=== PATIENT | male | born 1955 | race Caucasian/White ===

== ENCOUNTER → 2017-10-24 11:30 | Outpatient (CLI) | payer BC, SELFPAY ==
--- NOTE | 2017-10-24 11:30 | PROSBIL_PTH ---
PATIENT: JANETTE HALE III LOC: AKI U#:[id number] AGE/SX: 69/M ROOM: RE10/24/[address]: Dr. Denny Garcia MD : 1955 BED: DIS: SPEC #: [id number] RECD: 10/25/17 09:44 STATUS: KAELA MELISSA #: [id number] DORA: 10/24/17 11:[address]: Denny Garcia DEPT: SURGICAL PATHOLOGY RECD BY: Hernán Freed Tissues: A - PROSTATE RIGHT B - PROSTATE RIGHT C - PROSTATE RIGHT D - PROSTATE LEFT E - PROSTATE LEFT F - PROSTATE LEFT Procedures: PROSTATE BX HEADER OPERATION: Prostate biopsy PRE-OP DIAGNOSIS: Elevated PSA TISSUE SUBMITTED: A - Right apex, B - Right mid, C - Right base, D - Left apex, E - Left mid, F - Left base MICROSCOPIC DIAGNOSIS A. Right prostate, apex, core biopsy: Adenocarcinoma with focal mucinous features: Valmy grade: 7 (3+4) Cores involved: 1 out of 2 Tissue involved: 25% Greatest tumor length: 4.5 mm Focal high-grade prostatic intraepithelial neoplasia (HGPIN). B. Right prostate, mid, core biopsy: Adenocarcinoma: Valmy grade: 6 (3+3) Cores involved: 2 out of 2 Tissue involved: 35% Greatest tumor length: 5 mm Focal high-grade prostatic intraepithelial neoplasia (HGPIN). C. Right prostate, base, core biopsy: Adenocarcinoma: Valmy grade: 6 (3+3) Cores involved: 2 out of 2 Tissue involved: 6% Greatest tumor length: 1.5 mm D. Left prostate, apex, core biopsy: Focal high-grade prostatic intraepithelial neoplasia (HGPIN). E. Left prostate, mid, core biopsy: Focal high-grade prostatic intraepithelial neoplasia (HGPIN). Focal chronic inflammation. F. Left prostate, base, core biopsy: Adenocarcinoma: Bossman grade: 6 (3+3) Cores involved: 1 out of 2 Tissue involved: <1% Greatest tumor length: <1 mm Focal high-grade prostatic intraepithelial neoplasia (HGPIN). AM:devante 10/28/17 COMMENT A.Mucin stain with matched control supports the diagnosis. Case has been reviewed in consultation with Dr. Weinberg who concurs with the above diagnosis. IDC:SJ MICROSCOPIC DESCRIPTION Slides are reviewed. GROSS DESCRIPTION A - Received is one container designated prostate, right apex. The specimen consists of two elongated fragments of light lemos-white soft tissue each measuring 1.5 cm in length and 0.1 cm in diameter. The specimen is totally submitted in one cassette. B - Received is one container designated prostate, right mid. The specimen consists of two elongated fragments of light lemos-white soft tissue measuring 1 and 1.5 cm in length and 0.1 cm in diameter. The specimen is totally submitted in one cassette. C - Received is one container designated prostate, right base. The specimen consists of two elongated fragments of light lemos-white soft tissue measuring 1 and 1.8 cm in length and 0.1 cm in diameter. The specimen is totally submitted in one cassette. D - Received is one container designated prostate, left apex. The specimen consists of two elongated fragments of light lemos-white soft tissue each measuring 1.2 cm in length and 0.1 cm in diameter. The specimen is totally submitted in one cassette. E - Received is one container designated prostate, left mid. The specimen consists of two elongated fragments of light lemos-white soft tissue measuring 1 and 1.5 cm in length and 0.1 cm in diameter. The specimen is totally submitted in one cassette. F - Received is one container designated prostate, left base. The specimen consists of two elongated fragments of light lemos-white soft tissue each measuring 1 cm in length and 0.1 cm in diameter. The specimen is totally submitted in one cassette. / SJ:rg 10/25/17 TC:0 [facility]: [id number] [id number]
== END ==
PROVIDERS: Visit Provider Urology
DX: R97.20 Elevated prostate specific antigen [PSA] (principal)
CPT/HCPCS: 88305; G0416

== ENCOUNTER → 2017-11-05 08:26 | Outpatient (CLI) | payer BC, SELFPAY ==
--- NOTE | 2017-11-05 08:34 | NM_ITS ---
CLINICAL: 62-year-old male with reported history of carcinoma of the prostate. WHOLE BODY 99m Tc MDP RADIONUCLIDE BONE SCINTIGRAPHY COMPARISON: None available FINDINGS: Following the intravenous administration of 27.1 mCi of 99m Tc MDP, whole body bone images reveal: 1. Increased radiopharmaceutical concentration is identified in the mid cervical spine posteriorly on the right, lower cervical spine posteriorly on the left, the sternoclavicular, acromioclavicular and glenohumeral compartments of the left shoulder, bilateral elbow and wrist articulations, right-left hands, knees bilaterally, left midfoot, the bilateral forefoot. 2. The remaining skeletal structures are scintigraphically unremarkable with normal-appearing renal images and urinary bladder activity identified. The subtle increase in tracer concentration is demonstrated in the right occipital calvarium in proximity to the lambdoidal suture most consistent with a normal variant. NM/Bone Scan Whole Body IMPRESSION: 1. The increase in radiopharmaceutical concentration identified in the cervical spine, bilateral shoulder and elbow articulations, right and left wrists, both hands, knees bilaterally, left midfoot, right-left forefoot is most consistent with degenerative arthritis. 2. There is no definitive typical scintigraphic evidence of skeletal metastatic disease on the current examination. Electronically Signed: Hernán Lopes DO at 9:13 EDT Tel , Service support ,
== END ==
PROVIDERS: Visit Provider Urology
DX: C61 Malignant neoplasm of prostate (principal)
CPT/HCPCS: 78306

== ENCOUNTER → 2017-11-13 17:41 | Outpatient (CLI) | payer BC, SELFPAY ==
--- NOTE | 2017-11-13 17:42 | CT_ITS ---
STUDY: CT ABDOMEN AND PELVIS WITH CONTRAST REASON FOR EXAM: Male, 62 years old. Prostate cancer RADIATION DOSAGE (If Supplied By Facility): CTDIvol = ( 16.64 ) mGy, DLP = ( 1029.89 ) mGycm TECHNIQUE: Transaxial images were obtained from the dome of the diaphragm to the symphysis pubis without oral contrast. 100ML ml of Isovue 300 contrast was administered. Sagittal and coronal images were reconstructed. Individualized dose optimization techniques were used for this CT. COMPARISON: None. FINDINGS: There are 2 tiny subcentimeter nodules in the lower lobes bilaterally of indeterminate etiology. The visualized portions of the heart are within normal limits. Normal liver. There is a large rim calcified stone in the gallbladder without evidence for acute inflammation. Normal spleen. Normal pancreas. Normal bilateral adrenal glands. Normal right kidney. Normal left kidney. Normal visualized stomach. Normal small intestine. Normal colon. The appendix is visualized and appears normal. Normal abdominal aorta. Normal inferior vena cava. Normal retroperitoneum. The prostate is mildly enlarged impinging upon the base of the bladder which is incompletely distended and diffusely thick-walled. Normal abdominal wall. Lumbar spine demonstrates moderate spondylosis CT/Abdomen/Pelvis WITH Contrast IMPRESSION: Tiny subcentimeter lower lobe nodules bilaterally of uncertain etiology or clinical significance. Early changes of metastatic disease cannot be entirely excluded although these could also represent noncalcified granulomata. Would recommend clinical correlation and dedicated CT of the chest for further evaluation Cholelithiasis without evidence for acute cholecystitis. Enlarged prostate which may be consistent with known neoplasm. Electronically Signed: Venu Peralta MD at 20:04 EDT , Service support ,
[2017-11-13 18:00] LABS: CREATININE FINGERSTICK 0.9 mg/dL (0.70-1.30); EGFR FINGERSTICK > 60.0000 mL/min (>60)
== END ==
PROVIDERS: Visit Provider Urology
DX: C61 Malignant neoplasm of prostate (principal)
CPT/HCPCS: 74177; Q9967